=== PATIENT | male | born 1995 | race Caucasian/White ===

== ENCOUNTER 2018-05-18 15:24 | Emergency (ER) | payer SELFPAY ==
[~2018-05-18] VITALS: Ht 177.8 cm; Wt 93.5 kg
[2018-05-18 15:29] VITALS: BP 114/69
== END 2018-05-18 19:30 | disposition left against medical advice (07) ==
LOC: ER 16:56
DX: T78.40XA Allergy, unspecified, initial encounter (principal); X58.XXXA Exposure to other specified factors, initial encounter; Z53.21 Procedure and treatment not carried out due to patient leaving prior to being seen by health care provider